=== PATIENT | male | born 1955 | race Caucasian/White ===

== ENCOUNTER 2020-09-18 13:03 | Emergency (ER) | payer MEDICARE ==
[~2020-09-18 13:03] MED LIST: 2 BP MEDS PO; IBUPROFEN800 MG PO; KEFLEX500 MG PO; TRAMADOL HCL50 MG PO
[2020-09-18 15:21] LABS: BILIRUBIN NEGATIVE (NEGATIVE); BLOOD 2+ Ery/uL (NEGATIVE); CLARITY CLEAR (CLEAR); COLOR YELLOW (YELLOW); GLUCOSE (U) NORMAL (NORMAL); LEUKOCYTES NEGATIVE Leu/uL (NEGATIVE); NITRITE NEGATIVE (NEGATIVE); PROTEIN NEGATIVE (NEGATIVE); SPECIFIC GRAVITY <=1.005 (1.001-1.030); UROBILINOGEN 0.2 mg/dL (0.2-1.0)
[2020-09-18 15:28] LABS: SQUAMOUS EPITHELIAL CELLS RARE; URINARY RBC RARE
[2020-09-18 15:32] LABS: BASOPHIL 1.5 % (0-2); EOSINOPHIL 2.5 % (0-7); HCT 55.1 % (42.0-52.0); HGB 18.4 g/dl (13.2-18.0); LYMPHOCYTE 20.2 % (15-48); MCH 29.8 pg (25.0-31.0); MCHC 33.4 g/dL (32.0-36.0); MCV 89.2 fL (78.0-100.0); MONOCYTE 10.3 % (0-12); NEUTROPHIL 64.7 % (41-80); NRBC 0; PLT 211 K/uL (150-400); RBC 6.18 M/uL (4.70-6.00); RDW 12.9 % (11.5-14.0); WBC 10.4 K/uL (4.0-10.5)
[2020-09-18 16:22] LABS: CREATININE 0.91 mg/dL (0.67-1.17); POTASSIUM 4.5 mmol/L (3.5-5.1)
[2020-09-20 15:10] LABS: CHLAMYDIA TRACHOMATIS, NAA Negative (Negative); NEISSERIA GONORRHOEAE, NAA Negative (Negative)
== END 2020-09-18 18:30 | disposition home or self-care (01) ==
LOC: FER 13:03
PROVIDERS: Nurse Practitioner Family
DX: R31.9 Hematuria, unspecified (principal); R30.9 Painful micturition, unspecified; R39.11 Hesitancy of micturition; R39.15 Urgency of urination; I10 Essential (primary) hypertension; F17.210 Nicotine dependence, cigarettes, uncomplicated; Z98.890 Other specified postprocedural states; Z87.438 Personal history of other diseases of male genital organs
CPT/HCPCS: 36415; 80048; 81001; 85025; 87491; 87591; J7030; Q9967